=== PATIENT | female | born 1965 | race Caucasian/White ===

== ENCOUNTER 2019-01-09 08:56 | Emergency (ER) | payer OTHER ==
[~2019-01-09] VITALS: Wt 88.0 kg
[2019-01-09 08:59] VITALS: BP 145/84; PULSE 80; RESP 18
[2019-01-09] MEDS ORDERED: KETOROLAC 30 MG INJ IM STA (10:18)
[2019-01-09] MEDS ORDERED: predniSONE 20 MG TAB PO ONE (10:30)
[2019-01-09] MEDS ORDERED: D-ME473S2 PO (10:33)
[2019-01-09] MEDS ORDERED: IBUP-1542 PO (10:33)
[2019-01-09] MEDS ORDERED: PRED20TA PO (10:33)
--- NOTE | 2019-01-09 10:35 | ERD ---
ER Documentation Chief Complaint Chief Complaint headache and sore throat for the past 2 days and coughing. no fevers. HPI 53-year-old female presents with sore throat, body aches, headache which is bitemporal and occipital for last 3 days. She has a history of asthma and has a nebulizer and inhaler. She also has a history of diabetes treated with oral medications. She denies vomiting, chest pain, measured fevers. ROS All systems reviewed and are negative except as per history of present illness. Medications Home Meds Active Scripts Prednisone* (Prednisone*) 20 Mg Tab, 40 MG PO DAILY for 3 Days, TAB Start January 10, 2019 Prov:RE OZUNA MD 01/09/19 Dextromethorphan Hb-Promethazine Hcl* (Promethazine DM* Syrup) 473 Ml Syrup, 5 ML PO Q6 PRN for COUGH for 5 Days, ML Prov:RE OZUNA MD 01/09/19 Ibuprofen* (Motrin*) 600 Mg Tab, 600 MG PO Q6, #15 TAB Prov:RE OZUNA MD 01/09/19 PMhx/Soc Hx Cardiac Disorders: Yes (HTN) Hx Miscellaneous Medical Probl: Yes (DM) FmHx Family History: No diabetes, No coronary disease, No other Physical Exam Vitals Vital Signs Date Temp Pulse Resp B/P (MAP) Pulse Ox O2 O2 Flow FiO2 Time Delivery Rate 01/09/19 98.4 80 18 145/84 98 08:59 (104) Physical Exam Const: No acute distress Head: Atraumatic Eyes: Normal Conjunctiva ENT: Normal External Ears, Nose and Mouth. TMs and oropharynx normal. Neck: Full range of motion. No meningismus. Resp: Clear to auscultation bilaterally with coarse cough without rales, wheezing or retractions. Cardio: Regular rate and rhythm, no murmurs Abd: Soft, non tender, non distended. Normal bowel sounds Skin: No petechiae or rashes Back: No midline or flank tenderness Ext: No cyanosis, or edema Neur: Awake and alert Psych: Normal Mood and Affect Results 24 hrs Laboratory Tests Test 01/09/19 10:20 POC Beta HCG, Qualitative NEGATIVE Current Medications Medications Dose Sig/Annie Start Time Status Last (Trade) Ordered Route PRN Stop Time Admin Dose Reason Admin Ketorolac 30 mg ONCE STAT 01/09/19 DC 01/09/19 Tromethamine IM 10:18 10:29 (Toradol) 01/09/19 10:19 Prednisone 60 mg ONCE ONCE 01/09/19 DC 01/09/19 (Prednisone) PO 10:30 10:29 01/09/19 10:31 Procedures/MDM Patient presents with URI symptoms for last 3 days. She has no evidence of hypoxemia, signs of pneumonia, sepsis. Doubt DKA. Patient well appearing. She is given Toradol 30 mg IM and prednisone 60 mg by mouth. We will treat with a short course of prednisone and was instructed to drink clear fluids and monitor blood sugar. She is to return for fevers, shortness of breath, chest pain, new worsening symptoms. She should continue her albuterol at home. The patient was stable with no new complaints during the ER course. Clinically, there is no current evidence to suggest meningitis, sepsis, acute abdomen, pneumonia, stroke, acute coronary syndrome, pulmonary embolism, aortic dissection or any other emergent condition appearing to require further evaluation or hospitalization. Patient counseled regarding my diagnostic impression and care plan. Prior to discharge all questions answered. Pt agrees with treatment plan and understands strict return precautions. Pt is instructed to follow up with primary care provider within 24-48 hours. Precautionary instructions provided including instructions to return to the ER if not improving or for any worsening or changing symptoms or concerns. Departure Diagnosis: Primary Impression: URI, acute Condition: Stable Patient Instructions: Uri, Viral, No Abx (Child) Additional Instructions: Probablamente un virus que dura 2-4 logan. cheque otro vez en el proximo joby para mas simptomas- vomito, dolor, cris, problemas con respirando, o con coyne doctor primario. RE OZUNA MD Jan 09, 2019 10:35
== END 2019-01-09 11:21 | disposition home or self-care (01) ==
LOC: FTE 08:56
DX: J06.9 Acute upper respiratory infection, unspecified (principal); J45.909 Unspecified asthma, uncomplicated; I10 Essential (primary) hypertension; E11.9 Type 2 diabetes mellitus without complications
CPT/HCPCS: 81025; 96372; J1885; J7512; Z7502